=== PATIENT | female | born 1975 | race Caucasian/White ===

== ENCOUNTER 2017-04-17 09:28 | Outpatient (CLI) | payer OTHER ==
--- NOTE | 2017-04-17 10:17 | Non Stress Test Report ---
Non Stress Test Datetime Report Generated by CPN: 04/17/2017 10:16 DEMOGRAPHIC EGA NST: 37.5 INDICATION Indication for Study: Ordered by Provider VITAL SIGNS Temperature - NST: 98.5 Pulse - NST: 70 RESP - NST: 18 NBPSYS NST: 119 NBPDIA NST: 75 MONITORING Monitor Explained: Monitor Explained; Test Explained; Patient Verbalized Understanding Time on Monitor: 04/17/2017 09:37 Time on Monitor: 04/17/2017 09:37 Time off Monitor: 04/17/2017 10:06 Time off Monitor: 04/17/2017 10:06 NST Duration: 29 NST Duration: 29 NST INTERVENTIONS NST Interventions: PO Hydration Physician Notified NST: Carly Capellan CNM. provider reviewed strip BABY A: [id number] BABY A Movement : Present Contraction Frequency : 5 ishaan garcia CX FHR Baseline : 13 FHR Baseline : 135 Accelerations : 15X15 Decelerations : None Variability : Moderate 6-25bpm NST Review: Meets Criteria for Reactive NST NST Review and Verified By : Hari Cardona RNC NST Results: Reactive NST REPORT Report Trigger: Send Report
== END 2017-04-17 10:08 | disposition home or self-care (01) ==
LOC: LC 09:28
PROVIDERS: ATTEND Student in an Organized Health Care Education/Training Program
PROC: 4A1HXCZ Monitoring of Products of Conception, Cardiac Rate, External Approach (ICD-10-PCS; principal; 2017-04-17)
DX: O47.1 False labor at or after 37 completed weeks of gestation (principal); O09.523 Supervision of elderly multigravida, third trimester; Z3A.37 37 weeks gestation of pregnancy
CPT/HCPCS: 59025